=== PATIENT | male | born 1955 | race Caucasian/White ===

== ENCOUNTER 2018-09-12 12:23 | Emergency (ER) | payer OTHER ==
[~2018-09-12] VITALS: Ht 185.4 cm; Wt 102.1 kg
[2018-09-12] MEDS ORDERED: MOBIC15 MG PO (12:44)
[2018-09-12] MEDS ORDERED: AMLODIPINE BESY10 MG PO (12:44)
[2018-09-12] MEDS ORDERED: COZAAR 25 MG TA25 M2 PO (12:45)
[2018-09-12] MEDS ORDERED: PRILOSEC 10MG C10 MG PO (12:46)
[2018-09-12 13:09] LABS: ABSOLUTE NEUTROPHILS 4.2 thou/uL (1.4-8.2); BASOPHILS 0.7 % (0.0-2.0); EOSINOPHILS 2.6 % (0.0-3.0); HEMATOCRIT 45.6 % (42.0-52.0); HEMOGLOBIN 15.5 gm/dL (14.0-18.0); LYMPHOCYTES 21.9 % (24.0-44.0); MCH 29.8 pg (26.0-34.0); MCV 87.7 fL (80.0-100.0); MONOCYTES 11.2 % (1.0-8.0); PLATELET COUNT 364 thou/uL (150-400); POLYS 63.6 % (36.0-66.0); RBC 5.21 mil/uL (4.50-6.00); RDW 14.5 % (10.5-14.5); WBC 6.5 thou/uL (4.0-11.0)
[2018-09-12 13:16] LABS: CALCIUM 9.6 mg/dL (8.5-10.1); CREATININE 1.2 mg/dL (0.7-1.3); POTASSIUM 3.8 mmol/L (3.5-5.1)
[2018-09-12 13:22] LABS: ALBUMIN 3.7 g/dL (3.4-5.0); TOTAL BILIRUBIN 0.4 mg/dL (<0.1-1.0); TOTAL PROTEIN 7.7 g/dL (6.4-8.2)
[2018-09-12] MEDS ORDERED: ZOFRAN ODT4 MG PO (14:17)
[2018-09-12] MEDS ORDERED: NORCO 5-325 TA1 EACH PO (14:17)
[2018-09-12 14:57] VITALS: BP 132/89
== END 2018-09-12 15:00 | disposition home or self-care (01) ==
LOC: ER 12:23
PROVIDERS: Emergency Medicine
DX: K52.9 Noninfective gastroenteritis and colitis, unspecified (principal); Z90.49 Acquired absence of other specified parts of digestive tract